=== PATIENT | male | born 1945 | race Caucasian/White ===

== ENCOUNTER → 2016-12-06 | Day surgery (SDC) | payer MEDICARE ==
[~2016-12-06] VITALS: Ht 180.3 cm; Wt 90.7 kg
[~2016-12-06] MED LIST: ASPIRIN CHEWABL81 MG PO; AUGMENTIN 875875 MG PO; CENTRUM SILVER1 EAC3 PO; EC NAPROSYN500 MG PO; EYE VITAMIN-MI1 EACH PO; FLAXSEED OIL1000 MG PO; LISINOPRIL5 MG PO; METFORMIN500 MG PO; PREDNISONE10 M1 PO; ROBITUSSIN AC 110 ML PO; SIMVASTATIN20 MG PO
--- NOTE | ~2016-12-06 | PROC NOTE ---
[place], [place] PROCEDURE NOTE [id number] UNIT #: [id number] ROOM: DOCTOR: JEANNIE GAINES,GUY BIRTHDATE: [birth year] DOS: 12/06/2016 PROCEDURE: Colonoscopy and polypectomy. INDICATIONS: History of colon polyps. An informed consent was obtained from the patient after indication of procedure. The alternatives and potential complications were explained to him. PROCEDURE MEDICATION: Sedation was administered by Anesthesiology Department. Scope used was Olympus pediatric colonoscope variable stiffness GIF-180, scope insertion was to the cecum, which was identified by the usual landmarks. The appendiceal orifice, ileocecal valve and triangular fold, in addition to transillumination in the right lower quadrant. FINDINGS: After adequate sedation, the patient was placed in left lateral decubitus position. Rectal examination showed a normal sphincter tone and no external hemorrhoids. Scope was introduced into the rectum and advanced to the cecum without difficulty. The prep was adequate. A 5 mm polyp was identified in the proximal transverse colon. The polyp was removed with the cold snare and recovered. The remaining colon mucosa appeared normal except for the presence of mild right-sided diverticular disease. Retroflexed views in the rectum showed small internal hemorrhoids. The scope was then withdrawn after the rectum was decompressed. The patient tolerated the procedure well. IMPRESSION: 1. Diminutive transverse colon polyp, removed. 2. Mild right-sided diverticular disease. 3. Normal colon mucosa otherwise. PLAN: We will review the histopathology reports and treat the patient accordingly. The patient was advised to avoid aspirin and NSAIDs for the next 10 days. Office followup will be scheduled in 2-3 weeks. GUY DENNIS MD CM:PROCNOTE:PROCEDURE NOTE 0925 [id number] MARIA ISABEL DENNIS MD
--- NOTE | ~2016-12-06 | CON ---
[place], [place] REPORT OF CONSULTATION NAME: CATALINA ROGERS SR [facility] #: [id number] UNIT #: [id number] ROOM: DOCTOR: GUY DENNIS MD BIRTHDATE: [birth year] DOS: 12/06/2016 PROCEDURE: Colonoscopy and polypectomy. INDICATIONS: History of colon polyps. An informed consent was obtained from the patient after indication of procedure. The alternatives and potential complications were explained to him. PROCEDURE MEDICATION: Sedation was administered by Anesthesiology Department. Scope used was Olympus pediatric colonoscope variable stiffness GIF-180, ____ insertion was to the cecum, which was identified by the usual landmarks. The appendiceal orifice, ileocecal valve and triangular fold, in addition to transillumination in the right lower quadrant. FINDINGS: After adequate sedation, the patient was placed in left lateral decubitus position. Rectal examination showed a normal sphincter tone and no external hemorrhoids. Scope was introduced into the rectum and advanced to the cecum without difficulty. The prep was adequate. A 5 mm polyp was identified in the proximal transverse colon. The polyp was removed with the cold snare and recovered. The remaining colon mucosa appeared normal except for the presence of mild right-sided diverticular disease. Retroflexed views in the rectum showed small internal hemorrhoids. The scope was then withdrawn after the rectum was decompressed. The patient tolerated the procedure well. IMPRESSION: 1. Diminutive transverse colon polyp, removed. 2. Mild right-sided diverticular disease. 3. Normal colon mucosa otherwise. PLAN: We will review the histopathology reports and treat the patient accordingly. The patient was advised to avoid aspirin and NSAIDs for the next 10 days. Office followup will be scheduled in 2-3 weeks. GUY DENNIS MD CM:CONSTR:REPORT OF CONSULTATION 0925 12/10/16 1340 [facility]
[2016-12-06 08:54] VITALS: BP 138/78
[2016-12-06 09:22] VITALS: BP 103/73
[2016-12-06 09:37] VITALS: BP 115/75
[2016-12-06 09:52] VITALS: BP 120/67
== END | disposition home or self-care (01) ==
LOC: SDC 12-02 14:00
DX: D12.3 Benign neoplasm of transverse colon (principal); K57.30 Diverticulosis of large intestine without perforation or abscess without bleeding; K64.8 Other hemorrhoids; I10 Essential (primary) hypertension; E11.9 Type 2 diabetes mellitus without complications; Z82.49 Family history of ischemic heart disease and other diseases of the circulatory system

== ENCOUNTER → 2016-12-20 | Outpatient (CLI) | payer MEDICARE ==
[2016-12-20 13:28] LABS: ALBUMIN 3.8 gm/dl (3.1-4.5); ALKALINE PHOSPHATASE 62 U/L (45-117); BILIRUBIN, TOTAL 0.5 mg/dl (0.2-1.0); BUN 11 mg/dl (7-24); CARBON DIOXIDE 28 mmol/L (21-32); CHLORIDE 102 mmol/L (98-107); CHOLESTEROL 178 mg/dL (<200); CPK 52 U/L (39-308); EST GLOM FILT AFRICAN AMERICAN > 60 ml/min; GLUCOSE 124 mg/dL (65-99); HDL CHOLESTEROL 56 mg/dl (40-60); LDL CHOLESTEROL 95 mg/dL (9-159); POTASSIUM 4.3 mmol/L (3.5-5.1); SGOT/AST 23 IU/L (3-35); SGPT/ALT 33 U/L (12-78); SODIUM 140 mmol/L (136-145); TOTAL PROTEIN 7.3 gm/dL (6.4-8.2); TRIGLYCERIDES 134 mg/dl (<150); VLDL CHOLESTEROL 27 mg/dL (6-40)
== END | disposition home or self-care (01) ==
LOC: LAB 12:09
PROVIDERS: Family Medicine
DX: I10 Essential (primary) hypertension (principal); E78.00 Pure hypercholesterolemia, unspecified

== ENCOUNTER → 2017-03-06 | Outpatient (CLI) | payer MEDICARE | END | disposition home or self-care (01) | LOC: RAD 11:12 | DX: R05 Cough (principal); M47.894 Other spondylosis, thoracic region; M41.84 Other forms of scoliosis, thoracic region; R09.89 Other specified symptoms and signs involving the circulatory and respiratory systems ==

== ENCOUNTER → 2017-06-17 | Outpatient (CLI) | payer MEDICARE ==
[2017-06-17 10:53] LABS: ALBUMIN 3.9 gm/dl (3.1-4.5); BILIRUBIN, TOTAL 0.5 mg/dl (0.2-1.0); BUN 13 mg/dl (7-24); CARBON DIOXIDE 27 mmol/L (21-32); CHLORIDE 105 mmol/L (98-107); CHOLESTEROL 167 mg/dL (<200); EST GLOM FILT AFRICAN AMERICAN > 60 ml/min; GLUCOSE 118 mg/dL (65-99); HDL CHOLESTEROL 51 mg/dl (40-60); LDL CHOLESTEROL 96 mg/dL (9-159); POTASSIUM 4.9 mmol/L (3.5-5.1); SGOT/AST 20 IU/L (3-35); SGPT/ALT 31 U/L (12-78); SODIUM 138 mmol/L (136-145); TOTAL PROTEIN 7.2 gm/dL (6.4-8.2); TRIGLYCERIDES 101 mg/dl (<150); VLDL CHOLESTEROL 20 mg/dL (6-40)
[2017-06-17 10:54] LABS: ALKALINE PHOSPHATASE 52 U/L (45-117)
== END | disposition home or self-care (01) ==
LOC: LAB 09:45
PROVIDERS: Family Medicine
DX: E78.00 Pure hypercholesterolemia, unspecified (principal); E74.9 Disorder of carbohydrate metabolism, unspecified; Z79.899 Other long term (current) drug therapy

== ENCOUNTER → 2017-12-24 | Outpatient (CLI) | payer MEDICARE ==
[2017-12-24 12:32] LABS: HEMATOCRIT 47.4 % (42.0-52.0); MEAN CELL VOLUME 86.5 fl (80.0-94.0); MEAN CORPUSCULAR HGB 29.2 pg (27.0-31.0); MEAN CORPUSCULAR HGB CONC 33.8 g/dl (33.0-37.0); MEAN PLATELET VOLUME 11.5 fl (9.6-12.3); RED BLOOD COUNT 5.48 10*6/uL (4.50-5.90); RED CELL DISTRI WIDTH 13.2 % (0-14.5); WHITE BLOOD COUNT 7.4 10*3/uL (4.8-10.8)
[2017-12-24 13:01] LABS: ALBUMIN 3.9 gm/dl (3.1-4.5); BUN 15 mg/dl (7-24); CHLORIDE 103 mmol/L (98-107); CHOLESTEROL 152 mg/dL (<200); CREATININE 0.98 mg/dL (0.70-1.30); SGOT/AST 20 IU/L (3-35); SGPT/ALT 29 U/L (12-78); SODIUM 139 mmol/L (136-145); TOTAL PROTEIN 7.2 gm/dL (6.4-8.2); TRIGLYCERIDES 125 mg/dl (<150); VLDL CHOLESTEROL 25 mg/dL (6-40)
[2017-12-24 13:05] LABS: ALKALINE PHOSPHATASE 55 U/L (45-117); HDL CHOLESTEROL 48 mg/dl (40-60); LDL CHOLESTEROL 79 mg/dL (9-159)
== END | disposition home or self-care (01) ==
LOC: LAB 11:54
PROVIDERS: Family Medicine
DX: I10 Essential (primary) hypertension (principal); F41.1 Generalized anxiety disorder; F43.9 Reaction to severe stress, unspecified; Z12.5 Encounter for screening for malignant neoplasm of prostate

== ENCOUNTER → 2018-02-03 | Outpatient (CLI) | payer MEDICARE ==
[2018-02-04 09:04] LABS: PROSTATE SPECIFIC AG FREE 0.86 ng/mL; PROSTATE SPECIFIC AG, SERUM 3.5 ng/mL (0.0-4.0)
== END | disposition home or self-care (01) ==
LOC: LAB 10:20
PROVIDERS: Urology
DX: R97.20 Elevated prostate specific antigen [PSA] (principal)

== ENCOUNTER → 2018-05-14 | Outpatient (CLI) | payer MEDICARE ==
[2018-05-14 11:51] LABS: ALBUMIN 3.7 gm/dl (3.1-4.5); BUN 14 mg/dl (7-24); CHLORIDE 104 mmol/L (98-107); CHOLESTEROL 166 mg/dL (<200); CREATININE 0.93 mg/dL (0.70-1.30); HDL CHOLESTEROL 42 mg/dl (40-60); LDL CHOLESTEROL 99 mg/dL (9-159); POTASSIUM 4.5 mmol/L (3.5-5.1); SGOT/AST 20 IU/L (3-35); SGPT/ALT 32 U/L (12-78); SODIUM 138 mmol/L (136-145); TOTAL PROTEIN 7.3 gm/dL (6.4-8.2); TRIGLYCERIDES 127 mg/dl (<150); VLDL CHOLESTEROL 25 mg/dL (6-40)
[2018-05-14 11:52] LABS: ALKALINE PHOSPHATASE 63 U/L (45-117)
[2018-05-15 09:05] LABS: PROSTATE SPECIFIC AG FREE 0.91 ng/mL; PROSTATE SPECIFIC AG, SERUM 7.6 ng/mL (0.0-4.0)
== END | disposition home or self-care (01) ==
LOC: LAB 10:57
PROVIDERS: Family Medicine
DX: E74.9 Disorder of carbohydrate metabolism, unspecified (principal); I10 Essential (primary) hypertension; E74.00 Glycogen storage disease, unspecified; R97.20 Elevated prostate specific antigen [PSA]; F41.1 Generalized anxiety disorder; E78.00 Pure hypercholesterolemia, unspecified; Z79.899 Other long term (current) drug therapy